=== PATIENT | male | born 1985 | race Caucasian/White ===

== ENCOUNTER 2018-08-06 07:23 | Emergency (ER) | payer MEDICAID ==
[~2018-08-06] VITALS: Ht 175.3 cm; Wt 121.0 kg
[2018-08-06 07:27] VITALS: Ht 175.3 cm; Wt 121.0 kg
[2018-08-06] MEDS ORDERED: PROPOFOL 200 MG INJ IV ONE (08:00)
[2018-08-06] MEDS ORDERED: IBUP800T48 PO (10:09)
--- NOTE | 2018-08-06 10:11 | ERD ---
ER Documentation Chief Complaint Chief Complaint ABD PAIN FROM HERNIA HPI This is a 32-year-old male who was having a bowel movement this morning and he was straining to push his stool out and after he finishes bowel movement he noticed that his umbilical hernia was stuck in the out position. He says it is hurting him now and he is usually able to reduce it but he could not. He has no vomiting. He says he feels a sharp pain in the umbilicus ROS All systems reviewed and are negative except as per history of present illness. Medications Home Meds Active Scripts Ibuprofen* (Motrin*) 800 Mg Tab, 800 MG PO Q6H PRN for PAIN AND OR ELEVATED T EMP, #30 TAB Prov:CALOS MARTINEZ DO 08/06/18 PMhx/Soc Medical and Surgical Hx: pt denies Surgical Hx Hx Miscellaneous Medical Probl: Yes (umbilical hernia) Hx Alcohol Use: No Hx Substance Use: No Hx Tobacco Use: No Smoking Status: Never smoker FmHx Family History: No coronary disease Physical Exam Vitals Vital Signs Date Temp Pulse Resp B/P (MAP) Pulse Ox O2 O2 Flow FiO2 Time Delivery Rate 08/06/18 72 15 109/80 98 Nasal 09:01 (90) Cannula 08/06/18 76 17 107/78 98 Nasal 08:47 (88) Cannula 08/06/18 82 18 104/76 98 Nasal 08:34 (85) Cannula 08/06/18 72 22 106/71 96 Room Air 08:23 (83) 08/06/18 98.1 83 18 128/56 98 07:27 (80) Physical Exam Const: No acute distress Head: Atraumatic Eyes: Normal Conjunctiva ENT: Normal External Ears, Nose and Mouth. Neck: Full range of motion. No meningismus. Resp: Clear to auscultation bilaterally Cardio: Regular rate and rhythm, no murmurs Abd: Soft, non tender, at the umbilicus there is a protruding hernia that is reducible because of pain no erythema normal bowel sounds Skin: No petechiae or rashes Back: No midline or flank tenderness Ext: No cyanosis, or edema Neur: Awake and alert Psych: Normal Mood and Affect Results 24 hrs Current Medications Medications Dose Sig/Sonia Start Time Status Last (Trade) Ordered Route PRN Stop Time Admin Dose Reason Admin Propofol 120 mg ONCE ONCE 08/06/18 DC 08/06/18 (Diprivan) IV 08:00 08:34 08/06/18 08:01 Procedures/MDM Procedural Sedation: Pre-assessment performed. See preceding complete history and physical for details. Time out performed. See sedation documentation for details. Risk, benefits and alternatives were discussed with the patient. Medication(s): Propofol Complications: No hypoxic or apneic events Recovered without incident. A minimum of 16 minutes of face to face time was performed including preparation, sedation and recovery time. Procedure by me: Hernia reduction. Gentle steady pressure was applied to the umbilicus and the hernia was easily reduced. The patient was able to recover from his conscious sedation was discharged home with follow-up with general surgery and with Motrin Patient feels much better at this time, and vital signs are normal, symptoms have improved. I did give strict instructions to return to the ED if symptoms continue or worsen, patient will otherwise follow-up with primary care physician. Patient understood instructions and agreed to plan. Disclaimer: Inadvertent spelling and grammatical errors are likely due to EHR/dictation software use and do not reflect on the overall quality of patient care. Also, please note that the electronic time recorded on this note does not necessarily reflect the actual time of the patient encounter. Departure Diagnosis: Primary Impression: Hernia Condition: Stable Patient Instructions: Hernia (Inguinal, Ventral, Umbilical) Referrals: AIDAN HERZOG MD, APOSTOLOS A. DO Aug 06, 2018 10:11
[2018-08-06 10:20] VITALS: BP 110/82; PULSE 87; RESP 18
== END 2018-08-06 10:23 | disposition home or self-care (01) ==
LOC: E/R 07:23
DX: K46.9 Unspecified abdominal hernia without obstruction or gangrene (principal)
CPT/HCPCS: 94770; 96374; Z7502; Z7610

== ENCOUNTER 2018-09-05 12:57 | Day surgery (SDC) | payer BC, MEDICAID ==
[~2018-09-05] VITALS: Ht 175.3 cm; Wt 119.7 kg
[~2018-09-05 12:57] MED LIST: IBUP800T48 PO
[2018-09-05 14:06] VITALS: Ht 175.3 cm; Wt 119.7 kg
[2018-09-05 14:15] VITALS: BP 123/65; PULSE 73; RESP 16
--- NOTE | 2018-09-05 15:23 | PREAC ---
Date/Time of Note Date/Time of Note DATE: 09/05/18 TIME: 15:22 Anesthesia Eval and Record Evaluation Time Pre-Procedure Interview DATE: 09/05/18 TIME: 15:22 Age 32 Sex male NPO: 8 hrs Preoperative diagnosis rectal bleeding, ETOH Planned procedure EGD, colonoscopy Past Medical History Past Medical History: Includes Cardio: HTN, Dyslipidemia Pulm: Sleep Apnea Hepatic: Hepatitis GI: GERD, Morbid obesity Surgery & Anesthesia Issues No known issue Meds Anticoagulation: No Beta Brian within 24 hr: No Reason Beta Brian not given: Pt. not on B-Brian Reported Medications [None] No Conflict Check 09/05/18 Discontinued Scripts Ibuprofen* (Motrin*) 800 Mg Tab, 800 MG PO Q6H PRN for PAIN AND OR ELEVATED TEMP, #30 TAB Prov:CALOS MARTINEZ DO 08/06/18 Meds reviewed: Yes Allergies Allergies Reviewed: Yes Labs/Studies Labs Reviewed: Reviewed by anesthesiologist test: N/A Pre-procedure Exam Last vitals Vital Signs Date Temp Pulse Resp B/P (MAP) Pulse Ox O2 O2 Flow FiO2 Time Delivery Rate 09/05/18 97.9 73 16 123/65 95 Room Air 14:15 (84) Airway: Adequate mouth opening, Adequate thyromental dist Mallampati: Mallampati III Teeth: Normal Lung: Normal Heart: Normal ASA Physical Status ASA physical status: 3 Emergency: None Planned Anesthetic General/MAC: MAC Planned Pain Management Parenteral pain med Pre-operative Attestations Prior to commencing anesthesia and surgery, the patient was re-evaluated, there was verification of: *The patient's identity *The results of appropriate recent lab work and preoperative vital signs *The above evaluation not changing prior to induction *Anesthetic plan, risk benefits, alternative and complications discussed with patient/family; questions answered; patient/family understands, accepts and wishes to proceed. NEWTON ROBLES MD Sep 05, 2018 15:23
[2018-09-05] MEDS ORDERED: PROPOFOL 60 ML ONE (15:24)
[2018-09-05] MEDS ORDERED: LIDOCAINE 2% (SDV) 5 ML INJ ONE (15:24)
[2018-09-05 16:26] VITALS: BP 131/78; PULSE 80; RESP 16
--- NOTE | 2018-09-05 20:35 | PAC ---
Date/Time of Note Date/Time of Note DATE: 09/05/18 TIME: 20:35 Post-Anesthesia Notes Post-Anesthesia Note Last documented vital signs Vital Signs Date Temp Pulse Resp B/P (MAP) Pulse Ox O2 O2 Flow FiO2 Time Delivery Rate 09/05/18 80 16 131/78 94 Room Air 16:26 (95) 09/05/18 97.9 14:15 Activity: WNL Respiratory function: WNL Cardiovascular function: WNL Mental status: Baseline Pain reasonably controlled: Yes Hydration appropriate: Yes Nausea/Vomiting absent: Yes NEWTON ROBLES MD Sep 05, 2018 20:35
--- NOTE | 2018-09-06 01:15 | GILP ---
DATE OF PROCEDURE: 09/05/2018 PROCEDURE: Esophagogastroduodenoscopy. PREOPERATIVE DIAGNOSES: The patient presenting with history of chronic upper abdominal pain, unrespo nsive to routine therapy, rule out peptic ulcer disease, gastritis. POSTOPERATIVE DIAGNOSES: 1. Moderate degree of diffuse gastritis. 2. Multiple distal esophageal erosions were noted. Duodenum was normal. DESCRIPTION OF PROCEDURE: After the informed written consent was obtained, the patient was asked to lie on the left lateral position. Intravenous anesthesia was given by the anesthesiologist, Dr. Tish georges. When the patient became somnolent, the Olympus video upper endoscope was inserted into the oroph arynx, then into the esophagus. Esophagus showed multiple linear erosions. Multiple biopsies were o btained to rule out a Hein's esophagus. Subsequently, the scope at this time was advanced into th e stomach. Stomach showed evidence of a diffuse erythema occupying most of the stomach. Multiple bi opsies were obtained from the antrum, the lesser curvature and the fundus to rule out H. pylori infec tion. Scope at this time was advanced into the duodenum. Entire duodenum appeared normal with no mu cosal abnormality. Endoscope at this time was withdrawn and the procedure was terminated. PLAN: Recommend a proton pump inhibitor therapy. Dictated By: DAMARIS MORELOS/MARILY Conf#: [id number] DID#: [id number] CC: CALOS MARTINEZ DO;*End*
== END 2018-09-09 11:27 | disposition home or self-care (01) ==
LOC: GIL 12:57
PROVIDERS: ATTEND Internal Medicine Gastroenterology
DX: K92.1 Melena (principal); K64.8 Other hemorrhoids; K57.90 Diverticulosis of intestine, part unspecified, without perforation or abscess without bleeding; K29.30 Chronic superficial gastritis without bleeding; K21.0 Gastro-esophageal reflux disease with esophagitis
CPT/HCPCS: 43239; 45378; 88305; 88312; 88313; Z7610